=== PATIENT | male | born 1985 | race Two or more races ===

== ENCOUNTER 2022-12-12 06:47 | Day surgery (SDC) | payer OTHER ==
[~2022-12-12] VITALS: Ht 175.3 cm; Wt 108.9 kg
[2022-12-12] MEDS ORDERED: SUCCINYLCHOLINE CHLORIDE 20 MG/ML 10ML VIAL IV ONE (06:57)
[2022-12-12] MEDS ORDERED: DOXAPRAM HCL 20 MG/ML 20ML VIAL INJ IV ONE (06:57)
[2022-12-12] MEDS ORDERED: ROCURONIUM 10MG/ML 10ML VIAL IV ONE (06:58)
[2022-12-12] MEDS ORDERED: BUPIVACAINE 0.5% P/F INJ 10 ML VIAL ONE (07:01)
[2022-12-12] MEDS ORDERED: LIDOCAINE 2% JELLY 11ml (GLYDO) ONE (07:01)
[2022-12-12] MEDS ORDERED: MIDAZOLAM HCL 2MG/2ML 2ml VIAL (1mg/ml) ONE (07:07)
[2022-12-12] MEDS ORDERED: fentaNYL CITRATE 100 MCG/2 ML VL ONE (07:07)
[2022-12-12] MEDS ORDERED: MEPERIDINE HCL (25 MG/ML) 1ML VIAL ONE (07:07)
[2022-12-12] MEDS ORDERED: HEPARIN SODIUM (PORCINE) 5000 UNITS/ML 1ML VIAL ONE (07:08)
[2022-12-12] MEDS ORDERED: GLYCOPYRROLATE 0.2 MG/ML 1ML VIAL ONE (07:14)
[2022-12-12] MEDS ORDERED: PROPOFOL 10 MG/ML 20 ML IV ONE (07:14)
[2022-12-12] MEDS ORDERED: SODIUM CHLORIDE LOCK 10 ML ONE (07:14)
[2022-12-12] MEDS ORDERED: DexAMETHasone SOD PHOS 10MG/1ML VIAL INJ ONE (07:14)
[2022-12-12] MEDS ORDERED: NEOSTIGMINE 1 MG/ML INJ (10mg/10ML VIAL) ONE (07:14)
[2022-12-12] MEDS ORDERED: ONDANSETRON HCL 4 MG/2 ML VIAL ONE (07:14)
[2022-12-12] MEDS ORDERED: HYDROmorphone HCL 2 MG/ML VL/or syr IV PRN ×2 (07:30)
[2022-12-12] MEDS ORDERED: METOCLOPRAMIDE HCL 5MG/ml INJ 2ml VIAL IV PRN (07:30)
[2022-12-12] MEDS ORDERED: MORPHINE SULFATE INJ 2 MG/ml SYRG IV PRN (07:30)
[2022-12-12] MEDS ORDERED: ceFAZolin 1GM/50ML 100 ML IV ONE (07:33)
[2022-12-12] MEDS ORDERED: SUGAMMADEX 200mg/2ml Vial (100MG/ML) IV ONE (08:39)
[2022-12-12 09:35] VITALS: BP 122/75
== END 2022-12-12 09:48 | disposition home or self-care (01) ==
LOC: SUR 06:47 → EEVIPCON 07:00 → SUR 09:48
DX: K43.6 Other and unspecified ventral hernia with obstruction, without gangrene (principal); Z98.890 Other specified postprocedural states
CPT/HCPCS: 49614; J0330; J0690; J1100; J1644; J2175; J2250; J2405; J2704; J3010; J3490